=== PATIENT | male | born 1980 | race African-American/Black ===

== ENCOUNTER → 2024-04-24 16:05 | Observation (INO) ==
[2024-04-22 15:55] LABS: Potassium 3.4 mmol/L (3.6-5.2)
[2024-04-22] MEDS: polyethylene glycoL 3350 17 GM POWD.PACK PO ONE (16:24)
[2024-04-23 05:13] LABS: Basophils%(Percent) Auto 0.6 (0.0-1.3); Eosinophils#(Absolute)Auto 0.1 (0.0-0.3); Eosinophils%(Percent) Auto 2.3 % (0.0-4.0); Granulocytes % - Auto 53.3 % (49.1-73.1); Granulocytes#(Absolute)- Auto 2.4 (2.0-6.2); Hematocrit 34.3 % (41.3-50.1); Mean Corpuscular Volume 81.2 fl (81.9-96.5); Monocytes #(Absolute)- Auto 0.4 (0.2-0.8); Monocytes %(Percent)- Auto 9.7 % (4.5-10.7); Platelet Count 271 K/uL (142-355); White Blood Count 4.6 K/uL (3.7-9.6)
[2024-04-23] MEDS: MAGNESIUM HYDROXIDE 400 MG/5 ML ORAL.SUSP PO ONE (09:41)
[2024-04-24 05:51] LABS: Basophils%(Percent) Auto 0.4 (0.0-1.3); Eosinophils#(Absolute)Auto 0.1 (0.0-0.3); Eosinophils%(Percent) Auto 2.5 % (0.0-4.0); Granulocytes#(Absolute)- Auto 2.7 (2.0-6.2); Hematocrit 34.8 % (41.3-50.1); Mean Corpuscular Volume 81.6 fl (81.9-96.5); Monocytes #(Absolute)- Auto 0.4 (0.2-0.8); Monocytes %(Percent)- Auto 8.4 % (4.5-10.7); Platelet Count 264 K/uL (142-355); White Blood Count 4.9 K/uL (3.7-9.6)
[2024-04-24 06:11] LABS: Potassium 3.7 mmol/L (3.6-5.2)
[2024-04-24 09:22] VITALS: RESP 18
--- NOTE | 2024-04-24 09:57 | History & Physical Report ---
H&P: HPI History of Present Illness Chief complaint: R10.813 Right lower quadrant abdominal tenderness Narrative: Patient is a 43 year old male, direct admitted to Med/Surg by Mercedes Mart NP for right and left lower quadrant abdominal pain. Patient complains of constipation and no bowel movement for a couple days. Patient and family members express wishes for a prison care facility. Case management has met with patient and family to discuss options and resources for placement. Review of Systems Status of ROS 10 or more systems reviewed and unremark able except as noted in history and below Constitutional Reports: change in weight; Denies: fever or chills Eyes Denies: change in vision, blurry vision, blind spots or light sensitivity Ears, nose, mouth, and throat Denies: throat pain, neck pain, throat swelling, difficulty swallowing, hoarseness or mouth pain Cardiovascular Reports: edema (BLE); Denies: chest pain, palpitations or swelling of feet/ankles Respiratory Denies: shortness of breath, cough, wheezing, stridor or pain on inspiration Gastrointestinal Reports: abdominal pain (Rt & Lf lower quadrant), constipation and change in bowel habits; Denies: nausea, vomiting, diarrhea or bloating Genitourinary Denies: painful urination, urinary frequency or urinary urgency Musculoskeletal Reports: extremity pain and muscle cramps; Denies: back pain or neck pain Integumentary/Breast Denies: rash, itching, redness or skin pain Neurological Reports: weakness in extremities and lack of coordination; Denies: headache or numbness in extremities Psychiatric Denies: anxiety, mood swings, panic attacks or change in sleep pattern Endocrine Denies: excessive urination or excessive thirst Hematologic/Lymphatic Denies: easy bruising, easy bleeding or enlarged lymph nodes Allergic/Immunologic Denies: hives, throat swelling or tongue swelling [facility] Medical History (Updated 04/24/24 @ 14:38 by Tiff Alvarez DO) Hypoalbuminemia Venous stasis of both lower extremities Hypomagnesemia Hypokalemia Iron deficiency anemia Iron deficiency Muscle spasm Chest pain Bedbound History of multiple cerebrovascular accidents (CVAs) Chronic acquired lymphedema Lymphedema Borderline diabetes Hypertension CVA (cerebral vascular accident) Surgical History No pertinent past surgical history Social History Smoking status: never smoker Within the past year, how often did you have a drink containing alcohol: never Score interpretation: A score less than 4 is consistent with normal alcohol consumption. Non-prescribed substance use: denies use Problems where you live: no known problems Highest level of school completed/degree received: high school Feel stressed/tense/nervous/anxious/difficulty sleeping: not at all Life stressor details: N/A Due to disability, difficulty making decisions: No Meds Home Medications and Allergies Home Medications Medication Instructions Recorded Confirmed Type amlodipine 5 mg tablet 5 mg PO DAILY 03/23/24 04/24/24 History aspirin 81 mg chewable tablet 81 mg PO DAILY 03/23/24 04/24/24 History atorvastatin 20 mg tablet 20 mg PO BEDTIME 03/23/24 04/24/24 History candesartan 32 mg tablet 32 mg PO DAILY 03/23/24 04/24/24 History clonidine 0.1 mg/24 hr weekly 1 patch topical QWEEK 03/23/24 04/24/24 History transdermal patch fluoxetine 10 mg capsule 10 mg PO DAILY 03/23/24 04/24/24 History metoprolol succinate 50 mg 50 mg PO DAILY 03/23/24 04/24/24 History tablet,extended release 24 hr nabumetone 750 mg tablet 750 mg PO BID 03/23/24 04/24/24 History ranolazine 500 mg tablet,extended 500 mg PO Q12H 03/23/24 04/24/24 History release,12 hr sennosides 8.6 mg-docusate sodium 2 tab-cap PO BID 03/23/24 04/24/24 History 50 mg tablet (Senna Plus) Allergies Allergy/AdvReac Type Severity Reaction Status Date / Time No Known Drug Allergies Allergy Verified 04/06/24 11:13 Exam Exam: Patient in stafford's position upon entering room for exam. Constitutional: abnormal general appearance (disheveled), (chronically ill) and (appears older than stated age), distress noted (moderate), abnormal body habitus (obese), limitations noted (behavioral limitations) and (physical limitations) and alert Vital Signs - 24 hr 04/22/24 19:53 04/23/24 00:00 04/23/24 04:00 Temperature 98.7 F 98.3 F 98.3 F Pulse Rate [Right Brachial] 91 H 86 74 Respiratory Rate 19 19 19 Blood Pressure [Ri ght Arm] 119/63 110/68 101/55 Pulse Oximetry 96 96 96 Oxygen Delivery Me thod Room Air Room Air Room Air 04/23/24 07:39 04/23/24 12:00 Temperature 98.3 F 97.6 F Pulse Rate [Right Brachial] 78 67 Respiratory Rate 19 19 Blood Pressure [Ri ght Arm] 129/57 117/67 Pulse Oximetry 98 97 Oxygen Delivery Me thod Room Air Room Air HENMT: normocephalic, head/scalp atraumatic, hearing grossly normal bilaterally, external ears normal and external nose normal Eyes: PERRL and conjunctivae normal Neck/C-Spine: trachea midline Lymph: no lymphadenopathy noted and no lymphedema noted Chest: inspection of chest normal and palpation of chest normal Respiratory: breath sounds equal bilaterally and normal respiratory effort Cardiovascular: normal heart rate noted, regular rhythm noted and no murmur Gastrointestinal: abdomen firm to palpation, distended, abnormal bowel sounds noted (hypoactive bowel sounds), pulsatile mass noted and ascites noted Genitourinary: no CVA tenderness and bladder normal to palpation Back/Pelvis: spine normal to inspection Extremities: abnormal to inspection, tenderness noted (LLE) and deformity noted Neurology: gait abnormality noted, speech abnormality noted (expressive aphasia) and (slurred) and coordination abnormality noted (Due to Hx of CVA) Psychiatry: Mental Status Exam documented within this Exam's Psych section mental status grossly normal, oriented x3 and cooperative Skin: skin color normal, lesion(s) noted (BLE) and skin turgor abnormal Reports (edematous) (BLE, no pitting) Assessment and Plan Assessment and Plan (1) Abdominal pain, generalized: Code(s): R10.84 - Generalized abdominal pain (2) Venous stasis of both lower extremities: Code(s): I87.8 - Other specified disorders of veins (3) Constipation: Qualifiers: Constipation type: slow transit constipation Qualified Code(s): K59.01 - Slow transit constipation Code(s): K59.00 - Constipation, unspecified (4) Hypokalemia: Code(s): E87.6 - Hypokalemia (5) Bedbound: Code(s): Z74.01 - Bed confinement status (6) Hypoalbuminemia: Code(s): E88.09 - Other disorders of plasma-protein metabolism, not elsewhere classified (7) Muscle spasm: Code(s): M62.838 - Other muscle spasm (8) Iron deficiency anemia: Qualifiers: Iron deficiency anemia type: other iron deficiency Qualified Code(s): D50.8 - Other iron deficiency anemias Code(s): D50.9 - Iron deficiency anemia, unspecified (9) History of multiple cerebrovascular accidents (CVAs): Code(s): Z86.73 - Personal history of transient ischemic attack (TIA), and cerebral infarction without residual deficits (10) Chronic acquired lymphedema: Code(s): I89.0 - Lymphedema, not elsewhere classified (11) Hypertension: Qualifiers: Hypertension type: primary hypertension Qualified Code(s): I10 - Essential (primary) hypertension Code(s): I10 - Essential (primary) hypertension (12) Abscess of left lower leg: Code(s): L02.416 - Cutaneous abscess of left lower limb Plan Acetaminophen 1,000 mg PO Q6H PRN Ondansetron Hcl 4 mg INJ Q4H PRN Magnesium Hydroxide 2,400 mg PO ONCE Continue home meds Follow labs and symptoms Waiting on placement for LTC. Results Labs Labs: CBC WBC 4.6 K/uL (3.7-9.6) 04/23/24 05:10 RBC 4.2 M/uL (4.40-5.80) L 04/23/24 05:10 Hgb 11.6 gm/dL (14.0-17.4) L 04/23/24 05:10 Hct 34.3 % (41.3-50.1) L 04/23/24 05:10 MCV 81.2 fl (81.9-96.5) L 04/23/24 05:10 MCH 27.4 pg (27.6-33.7) L 04/23/24 05:10 MCHC 33.8 g/dl (33.0-35.7) 04/23/24 05:10 RDW 16.7 % (11.0-14.8) H 04/23/24 05:10 Plt Count 271 K/uL (142-355) 04/23/24 05:10 MPV 7.1 fl (6.0-10.4) 04/23/24 05:10 Gran % 53.3 % (49.1-73.1) 04/23/24 05:10 Lymph % (Auto) 34.1 % (17.6-39.05) 04/23/24 05:10 [place] % (Auto) 9.7 % (4.5-10.7) 04/23/24 05:10 Eos % (Auto) 2.3 % (0.0-4.0) 04/23/24 05:10 Baso % (Auto) 0.6 (0.0-1.3) 04/23/24 05:10 Lymph # (Auto) 1.6 (0.8-2.9) 04/23/24 05:10 [place] # (Auto) 0.4 (0.2-0.8) 04/23/24 05:10 Eos # (Auto) 0.1 (0.0-0.3) 04/23/24 05:10 Baso # (Auto) 0.0 (0.0-0.1) 04/23/24 05:10 Absolute Gran (auto) 2.4 (2.0-6.2) 04/23/24 05:10 BMP Sodium 142 mmol/L (136-145) 04/22/24 15:43 Potassium 3.4 mmol/L (3.6-5.2) L 04/22/24 15:43 Chloride 104.0 mmol/L (98-107) 04/22/24 15:43 Carbon Dioxide 31 mmol/L (21-32) 04/22/24 15:43 Anion Gap 7.0 mEq/L (4-14) 04/22/24 15:43 BUN 13 mg/dL (7-18) 04/22/24 15:43 Creatinine 0.6 mg/dL (0.6-1.3) 04/22/24 15:43 Estimated GFR 121.3 (>59.9) 04/22/24 15:43 Glucose 84 mg/dL (70-110) 04/22/24 15:43 Calcium 8.7 mg/dL (8.5-10.1) 04/22/24 15:43 Total Bilirubin 0.49 mg/dL (0.0-1.0) 04/22/24 15:43 AST 42 U/L (15-37) H 04/22/24 15:43 ALT 51 U/L (30-65) 04/22/24 15:43 Alkaline Phosphatase 40 U/L (50-136) L 04/22/24 15:43 Total Protein 6.9 g/dL (6.4-8.2) 04/22/24 15:43 Albumin 3.1 g/dL (3.4-5.0) L 04/22/24 15:43 Cardiac Enzymes Troponin I High Sens 9.40 ng/L (4.0-60.4) 04/22/24 15:43 Liver Function Total Bilirubin 0.49 mg/dL (0.0-1.0) 04/22/24 15:43 AST 42 U/L (15-37) H 04/22/24 15:43 ALT 51 U/L (30-65) 04/22/24 15:43 Alkaline Phosphatase 40 U/L (50-136) L 04/22/24 15:43 Total Protein 6.9 g/dL (6.4-8.2) 04/22/24 15:43 Albumin 3.1 g/dL (3.4-5.0) L 04/22/24 15:43 Imaging Imaging ordered: other (XR Acute Abdomen Series) Radiologist's impression: XR ACUTE ABDOMEN SERIES Date of Service: 04/22/24 HISTORY: ABDOMINAL PAIN/TENDERNESS; CV/MBUnavailable COMPARISON: None TECHNIQUE: FINDINGS: The trachea is midline. The cardiac silhouette is unremarkable. The lungs are clear without focal mass or consolidation. There is no effusion or pneumothorax. The bony thorax is unremarkable. Flat plate and upright evaluation of the abdomen demonstrates a normal bowel gas pattern. There is no pneumoperitoneum. No pathological soft tissue mass or calcification can be observed. The bony structures are grossly intact. IMPRESSION: 1. No acute cardiopulmonary disease. 2. No evidence for acute abdominal pathology identified.
[2024-04-24 14:32] VITALS: BP 130/69; PULSE 74; TEMP 98.2
--- NOTE | 2024-04-24 14:59 | Discharge Summary ---
DS: Providers Provider Date of admission: 04/22/24 13:21 Primary care physician: Mercedes Mart NP Admitting clinician: Mercedes Mart Attending physician on admission: Tiff Alvarez Consults: 04/22/24 15:30 Consult to Occupational Therapy Routine Comment: Consulting Provider: Reason for consultation: sequela CVA Physician Instructions: evaluate and treat Consult to Physical Therapy Routine Comment: Consulting Provider: Reason for consultation: sequela CVA Physician Instructions: evaluate and treat 04/22/24 15:31 Consult to Speech Therapy Routine Comment: Consulting Provider: Reason for consultation: failure to thrive and hx of CVA Physician Instructions: evaluate and treat Attending physician on discharge: Tfif Alvarez Discharging clinician: Tiff Alvarez Anticipated date of discharge: 04/24/24 DS: Diagnosis Discharge Diagnosis (1) Abdominal pain, generalized: (2) Venous stasis of both lower extremities: (3) Constipation: Qualifiers: Constipation type: slow transit constipation Qualified Code(s): K59.01 - Slow transit constipation (4) Hypokalemia: (5) Bedbound: (6) Hypoalbuminemia: (7) Muscle spasm: (8) Iron deficiency anemia: Qualifiers: Iron deficiency anemia type: other iron deficiency Qualified Code(s): D50.8 - Other iron deficiency anemias (9) History of multiple cerebrovascular accidents (CVAs): (10) Chronic acquired lymphedema: (11) Hypertension: Qualifiers: Hypertension type: primary hypertension Qualified Code(s): I10 - Essential (primary) hypertension (12) Abscess of left lower leg: Plan Patient has progressed back to baseline and ready to discharge home to a long te care facility. DS: Summary Hospital Course Hospital Course: Patient is a 43 year old male, direct admitted to Med/Surg by Mercedes Mart NP for right and left lower quadrant abdominal pain. Patient complains of constipation and no bowel movement for a couple days. Patient and family members express wishes for a [facility]cf[facility] care facility. Case management has met with patient and family to discuss options and resources for placement. Patient has responded well to treatment plan and hospital stay has been uneventful at this time. Acute symptoms and problems have resolved and patient has returned to his baseline. It is recommended patient follow up with PCP in 5- 7 days of discharge for a post hospital follow up. Patient has been accepted to [facility] in [place], [place] for terminal makeup operator care. Case management has been notified and transportation is set to be arranged. Status at Discharge Functional status at discharge: bed bound Overall status at discharge: patient is back to baseline Time Spent with Patient Time attestation: Total time spent providing and/or coordinating discharge services: Exam Exam: Patient in stafford's position upon entering room for exam. Constitutional: abnormal general appearance (disheveled), (chronically ill) and (appears older than stated age), no apparent distress, abnormal body habitus (obese), limitations noted (behavioral limitations) and (physical limitations) and alert Vital Signs - 24 hr 04/23/24 16:00 04/23/24 20:00 04/24/24 00:00 Temperature 98.4 F 98.4 F 98.1 F Pulse Rate [Right Brachial] 66 63 66 Respiratory Rate 19 19 19 Blood Pressure [Ri ght Arm] 120/77 108/61 101/66 Pulse Oximetry 98 96 97 Oxygen Delivery Me thod Room Air Room Air Room Air 04/24/24 04:00 04/24/24 08:00 04/24/24 12:00 Temperature 98.2 F 98.4 F 98.2 F Pulse Rate [Right Brachial] 69 73 74 Respiratory Rate 20 18 18 Blood Pressure [Ri ght Arm] 109/61 128/66 130/69 Pulse Oximetry 100 Oxygen Delivery Me thod Room Air Room Air Room Air HENMT: normocephalic, head/scalp atraumatic, hearing grossly normal bilaterally, external ears normal and external nose normal Eyes: PERRL and conjunctivae normal Neck/C-Spine: trachea midline Lymph: no lymphadenopathy noted and no lymphedema noted Chest: inspection of chest normal and palpation of chest normal Respiratory: breath sounds equal bilaterally and normal respiratory effort Cardiovascular: normal heart rate noted, regular rhythm noted and no murmur Gastrointestinal: abdomen normal to inspection, abdomen firm to palpation, distended, abnormal bowel sounds noted (hypoactive bowel sounds), pulsatile mass noted and ascites noted Genitourinary: no CVA tenderness and bladder normal to palpation Back/Pelvis: spine normal to inspection Extremities: abnormal to inspection, tenderness noted (LLE) and deformity noted Neurology: gait abnormality noted, speech abnormality noted (expressive aphasia) and (slurred) and coordination abnormality noted (Due to Hx of CVA) Psychiatry: Mental Status Exam documented within this Exam's Psych section mental status grossly normal, oriented x3 and cooperative Skin: skin color normal, lesion(s) noted (BLE) and skin turgor abnormal Reports (edematous) (BLE, no pitting) DS: Data Data Completed and Pending Labs on day of discharge: Labs from last 24 hours 04/24/24 05:40 WBC 4.9 RBC 4.3 L Hgb 11.7 L Hct 34.8 L MCV 81.6 L MCH 27.4 L MCHC 33.6 RDW 16.7 H Plt Count 264 MPV 7.3 Gran % 56.0 Lymph % (Auto) 32.7 [place] % (Auto) 8.4 Eos % (Auto) 2.5 Baso % (Auto) 0.4 Lymph # (Auto) 1.6 [place] # (Auto) 0.4 Eos # (Auto) 0.1 Baso # (Auto) 0.0 Absolute Gran (auto) 2.7 Sodium 142 Potassium 3.7 Chloride 106.0 Carbon Dioxide 31 Anion Gap 5.0 BUN 12 Creatinine 0.7 Estimated GFR 115.8 Glucose 82 Calcium 8.6 Phosphorus 3.8 Magnesium 2.0 Total Bilirubin 0.49 AST 39 H ALT 50 Alkaline Phosphatase 36 L Total Protein 6.5 Albumin 2.8 L Imaging XR Acute Abdomen Series: Radiologist's impression: XR ACUTE ABDOMEN SERIES Date of Service: 04/22/24 HISTORY: ABDOMINAL PAIN/TENDERNESS; CV/MBUnavailable COMPARISON: None TECHNIQUE: FINDINGS: The trachea is midline. The cardiac silhouette is unremarkable. The lungs are clear without focal mass or consolidation. There is no effusion or pneumothorax. The bony thorax is unremarkable. Flat plate and upright evaluation of the abdomen demonstrates a normal bowel gas pattern. There is no pneumoperitoneum. No pathological soft tissue mass or calcification can be observed. The bony structures are grossly intact. IMPRESSION: 1. No acute cardiopulmonary disease. 2. No evidence for acute abdominal pathology identified. Discharge Plan Discharge Disposition: [facility] Condition: Stable Anticipated Discharge Date/Time: 04/24/24 14:30 Discharge Medications: Continued atorvastatin 20 mg tablet 20 mg PO BEDTIME clonidine 0.1 mg/24 hr patch weekly 1 patch topical QWEEK nabumetone 750 mg tablet 750 mg PO BID metoprolol succinate 50 mg tablet extended release 24 hr 50 mg PO DAILY sennosides-docusate sodium [Senna Plus] 8.6-50 mg tablet 2 tab-cap PO BID amlodipine 5 mg tablet 5 mg PO DAILY fluoxetine 10 mg capsule 10 mg PO DAILY candesartan 32 mg tablet 32 mg PO DAILY aspirin 81 mg tablet,chewable 81 mg PO DAILY ranolazine 500 mg tablet extended release 12 hr 500 mg PO Q12H Discharge Orders: Discharge Order (Routine); Ordered 04/24/24 Ordered By: Tiff Alvarez Activity: increase activity as tolerated Diet: advance to your usual diet Hospital Course: Patient is a 43 year old male, direct admitted to Med/Surg by Mercedes Mart NP for right and left lower quadrant abdominal pain. Patient complains of constipation and no bowel movement for a couple days. Patient and family members express wishes for a terminal makeup operator care facility. Case management has met with patient and family to discuss options and resources for placement. Patient has responded well to treatment plan and hospital stay has been uneventful at this time. Acute symptoms and problems have resolved and patient has returned to his baseline. It is recommended patient follow up with PCP in 5- 7 days of discharge for a post hospital follow up. Patient has been accepted to [facility] in [place], [place] for mcfp care. Case management has been notified and transportation is set to be arranged. Interventions: MED/SURG & ICU Observation Charge Sheet Last Done: 04/24/24 06:30 Print Language: Slovak Forms: Portal/Health [email or web address]
[~2024-04-24 16:05] MED LIST: ACETAMINOPHEN 500 MG TABLET PO PRN; ONDANSETRON HCL/PF 4 MG/2 ML VIAL INJ PRN
== END ==
LOC: MS
PROVIDERS: ADMIT Family Medicine; ATTEND Family Medicine